=== PATIENT | female | born 1980 | race Two or more races ===

== ENCOUNTER 2024-09-09 12:21 | Outpatient (CLI) | payer BC, SELFPAY ==
[2024-09-09] VITALS (9 sets, daily range): BP systolic 133–145; BP diastolic 72–82; PULSE 109–117; RESP 18–97; TEMP 36.7; O2SAT 96–98; BMI 33.0
== END 2024-09-09 13:15 | disposition home or self-care (01) ==
LOC: S4S1 12:25 → S4SX 12:28
PROVIDERS: Referring Provider Student in an Organized Health Care Education/Training Program; Visit Provider Student in an Organized Health Care Education/Training Program
DX: O36.8130 Decreased fetal movements, third trimester, not applicable or unspecified (principal); Z3A.34 34 weeks gestation of pregnancy
CPT/HCPCS: 59025

== ENCOUNTER 2024-09-11 10:29 | Outpatient (CLI) | payer BC, SELFPAY ==
[2024-09-11] VITALS (10 sets, daily range): BP systolic 125; BP diastolic 78–79; PULSE 99–108; RESP 18–98; TEMP 36.5; O2SAT 97–98; BMI 33.6
--- NOTE | 2024-09-11 11:25 | PC.NURSE ---
[address] de dios pt presented to ob triage for nst for gdm, ama and hypothyroid, per pt waiting on insurance approval to schedule for biwkly nst. pt denies any lof, bleeding or uc, +fm. 34.3wk. orders to dc home return for nst/angela on 09/14/2024
== END 2024-09-11 11:20 | disposition home or self-care (01) ==
LOC: S4S1 10:30 → S4SX 10:30
PROVIDERS: Referring Provider Obstetrics & Gynecology; Visit Provider Obstetrics & Gynecology
DX: Z34.83 Encounter for supervision of other normal pregnancy, third trimester (principal); Z36.9 Encounter for antenatal screening, unspecified; Z3A.34 34 weeks gestation of pregnancy
CPT/HCPCS: 59025

== ENCOUNTER 2024-09-25 10:22 | Observation (INO) | payer BC, SELFPAY ==
[2024-09-25] VITALS (7 sets, daily range): BP systolic 129–144; BP diastolic 60–76; PULSE 92–100; RESP 18–99; TEMP 36.7; BMI 35.4
[2024-09-25 10:54] LABS: Collection Type, Urine Clean Catch
[2024-09-25 11:02] LABS: Basophils % (Auto) 0 % (0-2.5); Eosinophils # (Auto) 0.2 Thou/mm3 (0.0-0.5); Eosinophils % (Auto) 3 % (0-10); Hematocrit 32.7 % (36.0-46.0); Immature Granulocytes % (Auto) 0 % (0-0); Immature Granulocytes Auto 0.02 Thou/mm3 (0.00-0.00); Lymphocytes # (Auto) 1.1 Thou/mm3 (1.0-4.8); Lymphocytes % (Auto) 19 % (10-50); Mean Corpuscular HGB Conc 36.7 g/dl (31.0-37.0); Mean Corpuscular Hemoglobin 31.1 pg (25.0-35.0); Mean Corpuscular Volume 85 fL (80-100); Monocytes # (Auto) 0.7 Thou/mm3 (0.0-0.8); Monocytes % (Auto) 12 % (0-12); Neutrophils # (Auto) 3.9 Thou/mm3 (1.8-7.7); Neutrophils % (Auto) 66 % (37-80); Nucleated Red Blood Cell % 0 /100 WBC (0); Platelet Count 146 Thou/mm3 (140-440); RDW Standard Deviation 42.2 fL (36.4-46.3); Red Blood Count 3.86 Miln/mm3 (4.00-5.20); White Blood Count 5.9 Thou/mm3 (3.6-11.0)
[2024-09-25 11:08] LABS: Bacteria,Urine Rare; Bilirubin,Urine Negative (Negative); Blood,Urine Negative (Negative); Clarity,Urine Clear (Clear/Hazy); Color,Urine Lt-Yellow (Lt Yel-Yel); Glucose, Urine Negative (Negative); Ketones,Urine Negative (Negative); Leukocyte Esterase,Urine Positive (Negative); Nitrite,Urine Negative (Negative); PH,Urine 6.5 (5.0-7.0); Protein,Urine Negative (Neg - Trace); RBC,Urine 2 /hpf (0-3); Specific Gravity,Urine 1.019 (1.001-1.035); Squamous Epithelial Cell,Urine 9 /hpf (0-5); Urobilinogen,Urine Negative mg/dL (0.0-1.0); WBC,Urine 25 /hpf (0-5)
[2024-09-25 11:12] LABS: Creatinine,Random Urine 71 mg/dL (30-125); Protein Total, Random Urine 20 mg/dL (1-14)
[2024-09-25 11:14] LABS: Fibrinogen 432 mg/dL (175-375); Partial Thromboplastin Time 27.6 Seconds (22.0-36.0); Prothrombin Time 10.9 Seconds (9.0-12.2)
[2024-09-25 11:30] LABS: Alanine Aminotransferase 9 U/L (10-49); Albumin, Serum 3.2 gm/dL (3.5-5.0); Albumin/Globulin Ratio 1.4 (1.2-2.2); Alkaline Phosphatase 825 U/L (46-116); Anion Gap 7 (7-16); Aspartate Amino Transferase 17 U/L (0-34); BUN/Creatinine Ratio 16 Ratio (12-20); Bilirubin,Total 0.7 mg/dL (0.3-1.2); Blood Urea Nitrogen 8 mg/dL (9-23); Calcium 8.5 mg/dL (8.3-10.6); Calcium (Corrected) 9.1 mg/dL (8.5-10.1); Carbon Dioxide 20.8 mMol/L (20.0-31.0); Chloride 110 mMol/L (98-107); Creatinine (Component) 0.5 mg/dL (0.6-1.3); Estimated Creatinine Clearance 156.7 mL/min (>60); Globulin 2.3 gm/dL (2.3-3.5); Glucose 123 mg/dL (74-106); LDH (Lactate Dehydrogenase) 187 U/L (120-246); Osmolality,Calculated 274 (275-295); Potassium 4.1 mMol/L (3.4-5.1); Sodium 138 mMol/L (136-145); Total Protein 5.5 gm/dL (5.7-8.2); Uric Acid 3.3 mg/dL (3.1-7.8); eGFR > 60 See Note
== END 2024-09-25 12:15 | disposition home or self-care (01) ==
PROVIDERS: Admitting Provider Obstetrics & Gynecology; Visit Provider Student in an Organized Health Care Education/Training Program
DX: Z34.83 Encounter for supervision of other normal pregnancy, third trimester (principal); Z36.89 Encounter for other specified antenatal screening; Z3A.36 36 weeks gestation of pregnancy
CPT/HCPCS: 36415; 59025; 59899; 80053; 81001; 82570; 83615; 84156; 84550; 85025; 85384; 85610; 85730; G0378

== ENCOUNTER 2024-09-28 09:38 | Outpatient (RCR) | payer BC, SELFPAY ==
--- NOTE | 2024-09-14 09:52 | XR_ITS ---
Examination: Biophysical profile, ultrasound Date and time of exam: September 06, 2024 0954 hours INDICATIONS: Diagnosis type 2 diabetes Technique: Multiple transabdominal sonographic images of the pelvis abdomen obtained. Attention is directed to the breathing movement, gross body movement, amniotic fluid volume and tone. Findings: Amniotic fluid index 15.5 cm Total biophysical profile is 8 of 8. breathing movement is 2. Gross body movement is 2. tone is 2. Qualitative amniotic fluid volume is 2 Impression: Biophysical profile is 8 of 8.
[2024-09-14 10:05] VITALS: BP 130/58; PULSE 93; RESP 16; TEMP 36.7
--- NOTE | 2024-09-17 09:36 | XR_ITS ---
Examination: Biophysical profile, ultrasound Date and time of exam: September 17, 2024 0939 hours INDICATIONS: Diagnosis type 2 diabetes Technique: Multiple transabdominal sonographic images of the pelvis abdomen obtained. Attention is directed to the breathing movement, gross body movement, amniotic fluid volume and tone. Findings: Amniotic fluid volume 12.9 cm Total biophysical profile is 8 of 8. breathing movement is 2. Gross body movement is 2. tone is 2. Qualitative amniotic fluid volume is 2 Impression: Biophysical profile is 8 of 8.
[2024-09-17 10:12] VITALS: BP 134/69; PULSE 72; RESP 16; TEMP 36.8
--- NOTE | 2024-09-21 09:37 | XR_ITS ---
Examination: Biophysical profile, ultrasound Date and time of exam: September 21, 2024 0944 hours INDICATIONS: Diagnosis type 2 diabetes Technique: Multiple transabdominal sonographic images of the pelvis abdomen obtained. Attention is directed to the breathing movement, gross body movement, amniotic fluid volume and tone. Findings: Amniotic fluid index 13.7 cm Total biophysical profile is 8 of 8. breathing movement is 2. Gross body movement is 2. tone is 2. Qualitative amniotic fluid volume is 2 Impression: Biophysical profile is 8 of 8.
[2024-09-21 10:09] VITALS: BP 123/58; PULSE 98; RESP 16; TEMP 36.7
--- NOTE | 2024-09-24 09:42 | XR_ITS ---
Examination: Biophysical profile, ultrasound Date and time of exam: September 24, 2024 0954 hours INDICATIONS: Diagnosis type 2 diabetes Technique: Multiple transabdominal sonographic images of the pelvis abdomen obtained. Attention is directed to the breathing movement, gross body movement, amniotic fluid volume and tone. Findings: Amniotic fluid index 10 cm Total biophysical profile is 8 of 8. breathing movement is 2. Gross body movement is 2. tone is 2. Qualitative amniotic fluid volume is 2 Impression: Biophysical profile is 8 of 8.
[2024-09-24 10:15] VITALS: BP 127/80; PULSE 100; RESP 16; TEMP 36.7
--- NOTE | 2024-09-28 09:47 | XR_ITS ---
Examination: Biophysical profile, ultrasound Date and time of exam: September 28, 2024 0951 hours INDICATIONS: Diagnosis type 2 diabetes Technique: Multiple transabdominal sonographic images of the pelvis abdomen obtained. Attention is directed to the breathing movement, gross body movement, amniotic fluid volume and tone. Findings: Amniotic fluid index 9.6 cm Total biophysical profile is 8 of 8. breathing movement is 2. Gross body movement is 2. tone is 2. Qualitative amniotic fluid volume is 2 Impression: Biophysical profile is 8 of 8.
[2024-09-28 10:13] VITALS: BP 130/72; PULSE 97; RESP 16
== END 2024-09-28 23:59 | disposition home or self-care (01) ==
LOC: S4S1 09:38
PROVIDERS: Referring Provider Student in an Organized Health Care Education/Training Program; Visit Provider Student in an Organized Health Care Education/Training Program
DX: O24.113 Pre-existing type 2 diabetes mellitus, in pregnancy, third trimester (principal); E11.9 Type 2 diabetes mellitus without complications; Z3A.36 36 weeks gestation of pregnancy
CPT/HCPCS: 59025; 76819

== ENCOUNTER 2024-09-29 19:43 | Inpatient (IN) | payer BC, SELFPAY ==
[2024-09-29] VITALS (34 sets, daily range): BP systolic 118–175; BP diastolic 61–97; PULSE 84–120; TEMP 36.6; O2SAT 96–100; BMI 37.0
[2024-09-29 20:12] LABS: Collection Type, Urine Clean Catch
[2024-09-29 20:21] LABS: Basophils % (Auto) 0 % (0-2.5); Eosinophils # (Auto) 0.1 Thou/mm3 (0.0-0.5); Eosinophils % (Auto) 1 % (0-10); Hematocrit 33.1 % (36.0-46.0); Immature Granulocytes % (Auto) 0 % (0-0); Immature Granulocytes Auto 0.02 Thou/mm3 (0.00-0.00); Lymphocytes # (Auto) 1.3 Thou/mm3 (1.0-4.8); Lymphocytes % (Auto) 19 % (10-50); Mean Corpuscular HGB Conc 36.3 g/dl (31.0-37.0); Mean Corpuscular Hemoglobin 31.2 pg (25.0-35.0); Mean Corpuscular Volume 86 fL (80-100); Monocytes # (Auto) 0.7 Thou/mm3 (0.0-0.8); Monocytes % (Auto) 10 % (0-12); Neutrophils # (Auto) 4.8 Thou/mm3 (1.8-7.7); Neutrophils % (Auto) 68 % (37-80); Nucleated Red Blood Cell % 0 /100 WBC (0); Platelet Count 148 Thou/mm3 (140-440); Red Blood Count 3.85 Miln/mm3 (4.00-5.20)
[2024-09-29 20:30] LABS: Fibrinogen 432 mg/dL (175-375); Partial Thromboplastin Time 26.5 Seconds (22.0-36.0); Prothrombin Time 10.6 Seconds (9.0-12.2)
[2024-09-29 20:33] LABS: Alanine Aminotransferase 12 U/L (10-49); Albumin, Serum 3.3 gm/dL (3.5-5.0); Albumin/Globulin Ratio 1.4 (1.2-2.2); Alkaline Phosphatase 944 U/L (46-116); Anion Gap 11 (7-16); Aspartate Amino Transferase 22 U/L (0-34); BUN/Creatinine Ratio 14 Ratio (12-20); Bilirubin,Total 0.8 mg/dL (0.3-1.2); Blood Urea Nitrogen 7 mg/dL (9-23); Calcium 8.4 mg/dL (8.3-10.6); Carbon Dioxide 20.7 mMol/L (20.0-31.0); Chloride 110 mMol/L (98-107); Creatinine (Component) 0.5 mg/dL (0.6-1.3); Estimated Creatinine Clearance 154.7 mL/min (>60); Globulin 2.4 gm/dL (2.3-3.5); Glucose 144 mg/dL (74-106); Osmolality,Calculated 284 (275-295); Sodium 142 mMol/L (136-145); Total Protein 5.7 gm/dL (5.7-8.2); Uric Acid 3.4 mg/dL (3.1-7.8); eGFR > 60 See Note
--- NOTE | 2024-09-29 20:36 | XR_ITS ---
Examination: Complete OB ultrasound greater than 14 weeks Date and time of exam: September 30, 1999 2510 0 5:00 PM INDICATIONS: -induced hypertension, unknown presentation today Findings: Viable intrauterine single fetus with single amniotic sac presentation cephalic Cardiac motion 148 BPM Placenta maternal left grade 2 A vocal CORD insertion 3 vessel seen Amniotic fluid index 6.6 cm spine variable Cervix 3.2 cm Ovaries obscured by bowel gas. Composite estimated gestational age based on BPD, head circumference, abdominal circumference, femur length is 34 weeks 4 days Estimated weight 2415 g. Survey of intracranial anatomy, spinal anatomy, abdominal anatomy, four-chamber heart performed with no abnormalities identified. Impression: Viable intrauterine gestation cephalic presentation.
[2024-09-29 20:51] LABS: Syphilis Nonreactive (Nonreactive)
[2024-09-29] MEDS: LABETALOL 100 MG TABLET 400 MG PO (21:03)
[2024-09-29 21:25] LABS: Bilirubin,Urine Negative (Negative); Blood,Urine Negative (Negative); Clarity,Urine Turbid (Clear/Hazy); Color,Urine Yellow (Lt Yel-Yel); Glucose, Urine Negative (Negative); Ketones,Urine Negative (Negative); Leukocyte Esterase,Urine Positive (Negative); Nitrite,Urine Negative (Negative); Protein,Urine 1+ (Neg - Trace); RBC,Urine 2 /hpf (0-3); Squamous Epithelial Cell,Urine 15 /hpf (0-5); WBC,Urine 15 /hpf (0-5)
--- NOTE | 2024-09-29 21:44 | PD.LDHP ---
Documentation for date of: 09/29/24 OB Labor/Induct. HPI History of Present Illness : 3 Term pregnancies: 1 pregnancies: 0 Living children: 1 History of Abortions: Spontaneous and Elective: 0 History of sections: No History of : No Date of last menstrual period: 01/04/24 ROSS: 10/20/24 Gestational age based on last menstrual period: 40 History of present illness: 44-year-old 3 para 1-0-1-1 at 37 weeks (per 13 weeks ultrasound), was sent earlier today from her perinatologist appointment for induction of labor. has been complicated by type 2 diabetes and uncontrolled hypothyroidism. Patient was a transfer of care from [facility] and when I assumed her care during her . She was not on any medications for diabetes. Thereafter the patient was started on insulin as self monitored blood glucose were not under control. After multiple adjustments of insulin for the last 2 visits patient was reporting her blood sugars to be within expected limits. However during her last visit patient had elevated blood pressures and was sent to the triage for preeclampsia evaluation. Patient did have persistent elevations in blood pressure for which her induction was scheduled for 09/30. However given the fact that she had elevated blood pressure at perinatologist appointment she was sent for an induction by M recommendation. Patient is also hypothyroid and have multiple adjustments of her levothyroxine during her . History of Present Adequate Care: Yes Abnormal ultrasound findings: Based on 13-week ultrasound Labs Labs: Positive: Rubella Titre and Negative: RPR, Hepatitis B, HIV, Chlamydia and Gonorrhea Past Medical History Surgical History SURGICAL: Negative Section Meds Home Medications and Allergies Home Medications ?Medication ?Instructions ?Recorded ?Confirmed ?Type No home meds. ##0 07/13/07 History levothyroxine 50 mcg tablet 50 mcg PO DAILY 09/09/24 09/29/24 History levothyroxine 75 mcg tablet mcg 09/09/24 History vit no.95-ferrous 1 tab PO DAILY 09/09/24 09/29/24 History fumarate 28 mg-folic acid 800 mcg tablet () insulin glargine 100 unit/mL (3 6 unit subcut QPM 09/11/24 09/29/24 History mL) subcutaneous pen Allergies Allergy/AdvReac Type Severity Reaction Status Date / Time No Known Allergies Allergy Unverified 09/30/24 08:16 OB Exam Physical Exam Vital signs: Temp Pulse BP Pulse Ox 97.8 F 95 143/79 H 97 09/29/24 20:00 09/29/24 21:03 09/29/24 21:03 09/29/24 21:43 Constitutional Constitutional: no acute distress Routine HEENT Exam Head: Present normocephalic and atraumatic Eye: Present EOMI and PERRL ENT: Present mucous membranes moist Routine Neck Exam Neck: Present supple and trachea midline Routine Cardiovascular Exam Cardiovascular: Present RRR Routine Abdominal Exam Abdominal: Present soft and normoactive bowel sounds Detailed Labor and Delivery Exam Dilation (cm): 3 Effacement (%): 50 Consistency: medium monitor accelerations: 15x15 monitor decelerations: None Routine Extremities Exam Extremities: Present full ROM Routine Skin Exam Skin: Present intact, dry and warm Routine Neurological Exam Neurological: Present alert, oriented X3 and CN II-XII intact Routine Psychiatric Exam Psychiatric: Present normal affect and normal thought process OB Results Labs 09/30/24 07:35 09/29/24 20:04 Labs: Short CBC 09/29/24 Range/Units 20:04 WBC 7.0 (3.6-11.0) Thou/mm3 Hgb 12.0 (12.0-16.0) g/dL Hct 33.1 L (36.0-46.0) % Plt Count 148 (140-440) Thou/mm3 BMP 09/29/24 20:04 Sodium 142 Potassium 4.0 Chloride 110 H Carbon Dioxide 20.7 BUN 7 L Creatinine 0.5 L Glucose 144 H Calcium 8.4 Liver Function 09/29/24 Range/Units 20:04 Total Bilirubin 0.8 (0.3-1.2) mg/dL AST 22 (0-34) U/L ALT 12 (10-49) U/L Alkaline Phosphatase 944 H (46-116) U/L Albumin 3.3 L (3.5-5.0) gm/dL Urine 09/29/24 Range/Units 20:04 Urine Color Yellow (Lt Yel-Yel) Urine Clarity Turbid A (Clear/Hazy) Urine pH 6.0 (5.0-7.0) Ur Specific [place] 1.030 (1.001-1.035) Urine Protein 1+ A (Neg - Trace) Urine Glucose (UA) Negative (Negative) Impressions Impression: 44-year-old 3 para 1-0-1-1 at 37 weeks admitted for induction of labor for gestational hypertension, type 2 diabetes on insulin, hypothyroidism uncontrolled Cephalic on presentation Preeclampsia labs within normal limits OB Assessment & Plan Additional Plan Additional Plan Comment: Cytotec per protocol
[2024-09-29] MEDS: INSULIN GLARGINE (Lantus) 5 UNIT/0.05 ML (PER 5 UNITS) 6 UNIT SC (22:15)
[2024-09-29] MEDS: MISOPROSTOL 50 mCg TABLET PO (23:04)
[2024-09-29] MEDS: FAMOTIDINE INJ 10 MG/ML VIAL 2 ML 20 MG IV (23:46)
[2024-09-29] MEDS: METOCLOPRAMIDE INJ 5 MG/ML VIAL 2 ML 10 MG IVP (23:46)
[2024-09-29] MEDS: ceFAZolin/D5W 2 GM IV 2 GM/100 ML BAG IV (23:47)
[2024-09-30] VITALS (17 sets, daily range): BP systolic 99–140; BP diastolic 50–83; PULSE 74–116; RESP 15–20; TEMP 36–37; O2SAT 2–99
--- NOTE | 2024-09-30 00:03 | ESPR_ITS ---
Documentation for date of: 09/30/24 OB Labor Progress Note Pelvic Exam Dilation (cm): 2.5 Effacement (%): 50 station: -3 Amniotic membrane status: Intact Contractions Monitor mode: External Contraction frequency: irreg Contraction intensity: Mild Status status: Category ll Assessment and Plan Comments: Patient after receiving the Cytotec had 3 prolonged deceleration where baby was down to 90. I was called by the charge nurse at 11:50 PM. Patient was evaluated at the bedside baby has returned back to the baseline however variability continues to be minimal. Blood pressure at the bedside was noted to be 175 systolic however the repeat was in 140. Anticipating drop in blood pressure during epidural patient was not given any antihypertensive medications. I did have an extensive discussion with the patient patient and her at the bedside. I made them aware that she is still in latent phase of labor and baby is having prolonged decelerations. At this point primary low-transverse C- section was offered as a mode of delivery for category 2 heart tone and intolerance to uterine contractions. Patient was also given the choice of expectant management and continuing with the induction as the baby has recovered now. However patient and her wants to pursue as mode of delivery. Risk of including bleeding, infection, injury to neighboring organs was discussed
[2024-09-30] MEDS: OXYTOCIN in NS 20 units 20 UNIT/1,000 ML BAG 125 UNIT IV (02:49)
[2024-09-30] MEDS: LEVOTHYROXINE SODIUM 25 MCG TABLET 50 MCG PO (05:59)
[2024-09-30 08:28] LABS: Basophils % (Auto) 1 % (0-2.5); Eosinophils # (Auto) 0.1 Thou/mm3 (0.0-0.5); Eosinophils % (Auto) 1 % (0-10); Hematocrit 30.5 % (36.0-46.0); Hemoglobin 10.7 g/dL (12.0-16.0); Immature Granulocytes % (Auto) 0 % (0-0); Immature Granulocytes Auto 0.02 Thou/mm3 (0.00-0.00); Lymphocytes # (Auto) 1.2 Thou/mm3 (1.0-4.8); Lymphocytes % (Auto) 15 % (10-50); Mean Corpuscular HGB Conc 35.1 g/dl (31.0-37.0); Mean Corpuscular Volume 88 fL (80-100); Monocytes # (Auto) 0.8 Thou/mm3 (0.0-0.8); Monocytes % (Auto) 10 % (0-12); Neutrophils # (Auto) 6.1 Thou/mm3 (1.8-7.7); Neutrophils % (Auto) 74 % (37-80); Nucleated Red Blood Cell % 0 /100 WBC (0); Platelet Count 131 Thou/mm3 (140-440); RDW Standard Deviation 44.4 fL (36.4-46.3); Red Blood Count 3.45 Miln/mm3 (4.00-5.20); White Blood Count 8.2 Thou/mm3 (3.6-11.0)
[2024-09-30] MEDS: INSULIN GLARGINE (Lantus) 5 UNIT/0.05 ML (PER 5 UNITS) 6 UNIT SC (09:05)
--- NOTE | 2024-09-30 11:31 | PD.GYNPROC ---
Operative Note - [facility] Procedure Date of procedure: 09/30/24 Procedure Performed: Primary low-transverse Indication: Category 2 heart tone in latent phase of labor Type 2 diabetes on insulin, poorly controlled Gestational hypertension Uncontrolled hypothyroidism Pre-Op diagnosis: Same Post-Op diagnosis: Same Anesthesia type: Spinal Procedure description: Informed consent was obtained and the patient was taken to the operating room.? Identity was confirmed by double identifiers and she was placed on the operating table.The abdomen and perineum were prepped in the usual sterile fashion and a Wing catheter was placed to continuous drainage.? Sterile drapes were applied.??A Pfannenstiel skin incision was made with a scalpel and carried to the subcutaneous fat up to the rectus fascia.? The rectus fascia was incised on either side of the midline and the incisions were extended bilaterally.? The fascia was gently dissected off the ventral surface of the rectus muscle both superiorly and inferiorly. Carefully a peritioneal window created after making sure there are no adhesions, hysterotomy incision made and extended bluntly with finger. Rupture of membranes revealed clear fluid. The baby was found in cephalic presentation and was delivered via vertex. seen the umbilical cord , was doubly clamped, divided and the was handed over to the waiting team. The placenta delivered by controlled cord traction . The interior of the uterus was now thorougly cleaned of all blood and debris and membranes.?The? hysterotomy was closed using 0 vicryl suture in double layers. Once the repair was completed the hysterotomy was inspected, was noted to be adequately hemostatic. Then the rectus fascia was repaired using Vicryl 0 in a running fashion.? The subcutaneous layer was now, approximated with 3-0 vicryl in double layers.? All bleeding points were cauterized using the Bovie.?The skin was closed using 4-0 Monocryl in a subcuticular fashion.? The skin was cleaned and a sterile dressing was applied. The patient was now undraped, the abdomen and back were thoroughly cleaned and she was now transferred to the recovery room in a stable Estimated blood loss (ml): 400 Surgical staff Operation Date: 09/30/24 00:19 Case Staff END MATCHER: Sven Spain RN First Assistant: Vicente Mendez Diagnosis Problem List Completed Was Problem List Reviewed/Reconciled?: Yes
--- NOTE | 2024-09-30 11:36 | PD.LDPPPRG ---
Subjective Subjective Interval history: 44-year-old s/p primary low-transverse earlier today was seen at the bedside. Patient is doing well denies any nausea vomiting has not started her diet yet and is ordered on gestational diabetic diet. Patient denies any fever or vaginal bleeding. Patient has not started ambulating yet Exam Vital Signs Temp Pulse Resp BP Pulse Ox O2 Del Method O2 Flow Rate 98.6 F 93 15 127/80 95 Room Air 2 09/30/24 09:05 09/30/24 09:05 09/30/24 09:05 09/30/24 09:05 09/30/24 09:05 09/30/24 09:05 09/30/24 02:35 Constitutional Constitutional: no acute distress Routine HEENT Exam Head: Present normocephalic and atraumatic Eye: Present EOMI and PERRL ENT: Present mucous membranes moist Routine Neck Exam Neck: Present supple and trachea midline Routine Respiratory Exam Respiratory: Present chest non-tender, lungs clear, normal breath sounds and no resp distress Routine Cardiovascular Exam Cardiovascular: Present RRR Routine Abdominal Exam Abdominal: Present soft and normoactive bowel sounds Routine Extremities Exam Extremities: Present full ROM Routine Skin Exam Skin: Present intact, dry and warm Routine Neurological Exam Neurological: Present alert, oriented X3 and CN II-XII intact Routine Psychiatric Exam Psychiatric: Present normal affect and normal thought process Objective Labs 09/30/24 07:35 09/29/24 20:04 Labs: Laboratory Results - last 24 hr 09/29/24 09/30/24 20:04 07:35 WBC 7.0 8.2 RBC 3.85 L 3.45 L Hgb 12.0 10.7 L Hct 33.1 L 30.5 L MCV 86 88 MCH 31.2 31.0 MCHC 36.3 35.1 RDW Std Deviation 43.0 44.4 Plt Count 148 131 L Neut % (Auto) 68 74 Lymph % (Auto) 19 15 [place] % (Auto) 10 10 Eos % (Auto) 1 1 Baso % (Auto) 0 1 Neut # (Auto) 4.8 6.1 Lymph # (Auto) 1.3 1.2 [place] # (Auto) 0.7 0.8 Eos # (Auto) 0.1 0.1 Baso # (Auto) 0.0 0.0 Immature Gran # (Auto) 0.02 H 0.02 H Absolute Nucleated RBC 0.00 0.00 Immature Gran % 0 0 Nucleated RBC % 0 0 PT 10.6 INR 1.0 APTT 26.5 Fibrinogen 432 H Sodium 142 Potassium 4.0 Chloride 110 H Carbon Dioxide 20.7 Anion Gap 11 BUN 7 L Creatinine 0.5 L Estim Creat Clear Calc 154.7 eGFR > 60 BUN/Creatinine Ratio 14 Glucose 144 H Calculated Osmolality 284 Uric Acid 3.4 Calcium 8.4 Corrected Calcium 9.0 Total Bilirubin 0.8 AST 22 ALT 12 Alkaline Phosphatase 944 H Total Protein 5.7 Albumin 3.3 L Globulin 2.4 Albumin/Globulin Ratio 1.4 Ur Collection Type Clean Catch Urine Color Yellow Urine Clarity Turbid A Urine pH 6.0 Ur Specific [place] 1.030 Urine Protein 1+ A Urine Glucose (UA) Negative Urine Ketones Negative Urine Blood Negative Urine Nitrite Negative Urine Bilirubin Negative Urine Urobilinogen (Auto) 3.0 Ur Leukocyte Esterase Positive Urine RBC 2 Urine WBC 15 H Ur Squamous Epith Cells 15 H Urine Bacteria None Syphilis Serology Nonreactive Blood Type A Positive Antibody Screen NEGATIVE Blood Bank Wristband ID Yes Assessment & Plan Assessment Comment Assessment comment: 44-year-old para 2 status post primary low-transverse for category 2 heart tone, postop day 0 Vital signs stable Meeting all postop milestones Type 2 diabetes insulin [place] Hypothyroidism to continue her levothyroxine Gestational hypertension blood pressures has been controlled well without any addition of antihypertensives Plan Comment Plan Comment: Continue postop care Anticipate discharge tomorrow Time Spent With Patient Time: Total time spent is greater than 50% in coordination of care (as documented) at patient's floor/unit and/or counseling patient:
[2024-09-30] MEDS: HYDROcodone/APAP 5/325 TABLET 2 TAB PO (12:20)
[2024-09-30] MEDS: DOCUSATE SOD 100 MG CAPSULE PO (17:50)
[2024-09-30] MEDS: IBUPROFEN TAB 400 MG TABLET 800 MG PO (17:50)
[2024-09-30] MEDS: SIMETHICONE 80 MG CHEW PO (17:50)
[2024-09-30] MEDS: INSULIN GLARGINE (Lantus) 5 UNIT/0.05 ML (PER 5 UNITS) 3 UNIT SC (20:57)
[2024-10-01 01:07] VITALS: BP 127/80; PULSE 90; RESP 18; TEMP 36.7; O2SAT 97
[2024-10-01 03:45] VITALS: BP 138/85; PULSE 89; RESP 16; TEMP 36.7; O2SAT 98
[2024-10-01] MEDS: HYDROcodone/APAP 5/325 TABLET 1 TAB PO (03:45)
[2024-10-01] MEDS: LEVOTHYROXINE SODIUM 25 MCG TABLET 50 MCG PO (05:56)
--- NOTE | 2024-10-01 08:25 | PC.LAC ---
Mom states that she has not gotten a chance to pump again since she has had so much company. Explained that she needs to stay on a schedule in order to assure a good milk supply. Explained that she can have her company come back or even wait a few minutes so she can get a pumping session in. As she is also not putting baby to breast, supplementing with formula, stressed importance of stimulation. Parents understood. stressed the importance of skin to skin and hand massage to encourage more stimulation as well.
[2024-10-01 08:30] VITALS: BP 125/83; PULSE 105
[2024-10-01] MEDS: IBUPROFEN TAB 400 MG TABLET 800 MG PO (08:44)
--- NOTE | 2024-10-01 08:52 | ESPR_ITS ---
Subjective Subjective Interval history: Denies any problem or complaint Exam Vital Signs Temp Pulse Resp BP Pulse Ox O2 Del Method O2 Flow Rate 98.1 F 89 16 138/85 H 98 Room Air 2 10/01/24 03:45 10/01/24 03:45 10/01/24 03:45 10/01/24 03:45 10/01/24 03:45 10/01/24 03:45 09/30/24 02:35 Routine Abdominal Exam Comments: Incision clear and intact Routine Extremities Exam Comments: Nontender Objective Labs 09/30/24 07:35 09/29/24 20:04 Labs: Laboratory Results - last 24 hr 09/30/24 07:35 WBC 8.2 RBC 3.45 L Hgb 10.7 L Hct 30.5 L MCV 88 MCH 31.0 MCHC 35.1 RDW Std Deviation 44.4 Plt Count 131 L Neut % (Auto) 74 Lymph % (Auto) 15 [place] % (Auto) 10 Eos % (Auto) 1 Baso % (Auto) 1 Neut # (Auto) 6.1 Lymph # (Auto) 1.2 [place] # (Auto) 0.8 Eos # (Auto) 0.1 Baso # (Auto) 0.0 Immature Gran # (Auto) 0.02 H Absolute Nucleated RBC 0.00 Immature Gran % 0 Nucleated RBC % 0 Assessment & Plan Assessment Comment Assessment comment: Postop day #2 status post delivery Discharge home Discharge instructions given Follow-up in the office in 1 week Time Spent With Patient Time: Total time spent is greater than 50% in coordination of care (as documented) at patient's floor/unit and/or counseling patient:
[2024-10-01 09:00] VITALS: BP 125/83; PULSE 105; RESP 16; TEMP 36.7
--- NOTE | 2024-10-01 09:05 | PD.LDDS ---
DS: Providers Provider Date of admission: 09/29/24 19:43 Primary care physician: Physician No Primary/Family Admitting Provider: Cedrick Wills MD Attending Provider on Admission: Bartolo Rodriguez MD Consults: 09/30/24 01:02 Referral Routine Comment: Attending Provider on DC: Bartolo Rodrigeuz MD Discharging Provider: Bartolo Rodriguez MD DS: Diagnosis Problem List Completed Was Problem List Reviewed/Reconciled?: Yes Summary/Hosp Course Brief History: 44-year-old 3 para 1-0-1-1 at 37 weeks (per 13 weeks ultrasound), was sent earlier today from her perinatologist appointment for induction of labor. has been complicated by type 2 diabetes and uncontrolled hypothyroidism. Patient was a transfer of care from [facility] and when I assumed her care during her . She was not on any medications for diabetes. Thereafter the patient was started on insulin as self monitored blood glucose were not under control. After multiple adjustments of insulin for the last 2 visits patient was reporting her blood sugars to be within expected limits. However during her last visit patient had elevated blood pressures and was sent to the triage for preeclampsia evaluation. Patient did have persistent elevations in blood pressure for which her induction was scheduled for 09/30. However given the fact that she had elevated blood pressure at perinatologist appointment she was sent for an induction by M recommendation. Patient is also hypothyroid and have multiple adjustments of her levothyroxine during her . Peripartum Data Delivery Method: Low Transverse Episiotomy Description: None Procedures: Procedures Operation Date: 09/30/24 00:19 Actual Procedure Side Surgeon p in OB Not Applicable Cedrick Wills MD Time Spent with Patient Time attestation: Total time spent providing and/or coordinating discharge services: Exam Vital Signs Temp Pulse Resp BP Pulse Ox O2 Del Method O2 Flow Rate 98.1 F 105 H 16 125/83 98 Room Air 2 10/01/24 03:45 10/01/24 08:30 10/01/24 03:45 10/01/24 08:30 10/01/24 03:45 10/01/24 03:45 09/30/24 02:35 Discharge Plan Plan Patient Disposition: HOME (Self Care) Patient condition on transfer: Stable Prescriptions/Referrals Prescriptions/Med Rec: New hydrocodone-acetaminophen 5-325 mg tablet 1 tab PO Q6H MDD 4 PRN (Reason: pain) Qty: 20 0RF Continued No home meds. Qty: 0 insulin glargine 100 unit/mL (3 mL) insulin pen 6 unit subcut QPM levothyroxine 75 mcg tablet PNV cmb#95-ferrous fumarate-FA [] 28 mg iron- 800 mcg tablet 1 tab PO DAILY Patient Comments: TAKE 1 TABLET BY MOUTH EVERY DAY Discontinued levothyroxine 50 mcg tablet 50 mcg PO DAILY Patient Comments: TAKE 1 TABLET BY MOUTH 30 MINUTES BEFORE BREAKFAST Referrals: No Primary/Family,Physician [Primary Care Provider] - Patient/Caregiver Discharge Instructions Education Materials: C Section Dc Print Language: Gambian Stand Alone Forms: Leigha Award Info., Patient Portal Info Letter Discharge Order Discharge Orders: Discharge (Routine); Ordered 10/01/24 Ordered By: Bartolo Rodriguez Planned Discharge Date 10/01/24
--- NOTE | 2024-10-01 09:30 | PC.NURSE ---
Patient cleared by clinical social worker
[2024-10-01 11:40] VITALS: BP 128/73; PULSE 86; RESP 16; TEMP 37; O2SAT 97
--- NOTE | 2024-10-01 11:49 | PC.SS ---
SS conducted bedside contact with the patient to address nursing referral indicating patient scored high on the depression scale.? SS introduced self and role.? SS discussed with patient basis of referral.? SS asked for permission to speak in front of .? Patient denied having any feelings of depression. Patient states when she completed the screening she had multiple family members in room and was a little distracted.? Patient, currently, has no impairments. Patient has no current thoughts of harming herself or others.? No other history of documented mental health. FOBTyler, resides in the home. This is patient?s 2nd child. [place], baby girl, Kim, was born this on 09[birth year]30-24 via csection. Patient?s other child is 23 years old. care was completed with Dr. Wills.? Patient was consistent with . Patient plans on breast/bottle feeding. Patient is not aligned with [place] assistance WIC or Food stamps. Patient denies history of drug/alcohol abuse, domestic violence. Patient describes possessing positive support from her family. Patient has all resources to include: car seat, infant clothing and infant supplies.? child protective services social worker provided resources to include:? Parenting Network, Warm Line and community numbers. SS discussed in further detail emotional support and answered all questions appropriately. No further intervention required at this time, transition social worker will be available to address any further concerns. SS updated bedside nurse. Patient to discharge home this morning.
--- NOTE | 2024-10-03 12:43 | OBDSUM_ITS ---
Data (Rose) Data Hx Section: No : 3 Term: 1 : 0 Livin Abortions: Spontaneous & Theraputic: 0 Delivery Data (Rose) Labor Data Initiation of labor: Induction Induction/Augmentation Agent: Cytotec-PO ROM date: 09/30/24 ROM time: 00:23 Amniotic membrane rupture type: Artificial Amniotic fluid description: Clear Delivery Data delivery date: 09/30/24 delivery time: 00:24 Gestational age (weeks): 37 Gestational age (days): 0 Placenta delivery date: 09/30/24 Placenta delivery time: 00:25 Delivered by: Cedrick Wills Delivery nurse: rad Mckeon nurse: thang Supervisor [employer] at delivery: Yes Support person(s) at delivery: FOB in room Delivery Method Delivery method: Low Transverse Presentation: Vertex Anesthesia Type Anesthesia Type: Spinal Anesthesia type: Spinal Placenta Placenta delivery description: Manual Removal Cord blood sent to lab: Yes cord blood collection: Cord Blood Type Episiotomy Episiotomy description: None EBL Estimated blood loss (ml): 400 Umbilical Cord cord description: 3 Vessels and Nuchal Cord [place] Data (Rose) Data order: 1 [place]'s gender: Female Identification band number: [id number] weight (gms): 2810 g Weight (pounds): 6 lbs and 3.1 ozs [place] length: 46.99 cm 1 minute: 8 5 minutes: 9
== END 2024-10-01 14:05 | disposition home or self-care (01) | DRG 788 ==
LOC: S4SX 19:54 → S4NX 09-30 00:27
PROVIDERS: Admitting Provider Student in an Organized Health Care Education/Training Program; Visit Provider Specialist
PROC: 10D00Z1 Extraction of Products of Conception, Low, Open Approach (ICD-10-PCS; CPT 59514; principal; 2024-09-30)
DX: O13.4 Gestational [pregnancy-induced] hypertension without significant proteinuria, complicating childbirth (principal); O24.12 Pre-existing type 2 diabetes mellitus, in childbirth; E03.9 Hypothyroidism, unspecified; O99.284 Endocrine, nutritional and metabolic diseases complicating childbirth; Z37.0 Single live birth; Z3A.37 37 weeks gestation of pregnancy; O69.81X0 Labor and delivery complicated by cord around neck, without compression, not applicable or unspecified; O76 Abnormality in fetal heart rate and rhythm complicating labor and delivery; Z79.890 Hormone replacement therapy; Z79.4 Long term (current) use of insulin
CPT/HCPCS: 36415; 59409; 76805; 80053; 81001; 84550; 85025; 85384; 85610; 85730; 86780; 86850; 86900; 86901; 94762; J0689; J1815; J2250; J2274; J2590; J2765; J3010; J3490; A9270; J2270

== ENCOUNTER → 2025-02-05 | Outpatient (CLI) | payer BC, SELFPAY ==
--- NOTE | 2025-02-05 07:15 | XR_ITS ---
Examination: Abdomen sonogram, complete Date and time of exam: February 05, 2025, 0713 hrs. Indications: Elevated liver tests on laboratory examination this week. Technique: Multiple real-time grayscale transabdominal sonographic images of the abdomen have been obtained. Findings: Normal gallbladder. Normal common bile duct 0.4 cm. Pancreatic head 1.8 cm Aorta not enlarged. Liver 13.8 cm no liver lesions Normal hepatopedal portal venous flow Patent IVC Right kidney 10.4 cm cortex 2.2 cm Left kidney 11.0 cm cortex 2.1 cm No hydronephrosis or renal calculi Spleen 9.1 cm Impression: Normal gallbladder Liver normal size no focal liver lesions No hydronephrosis or renal calculi
== END | disposition home or self-care (01) ==
LOC: CDIM 07:02
PROVIDERS: PCP Registered Nurse Community Health; Referring Provider Registered Nurse Community Health; Visit Provider Registered Nurse Community Health
DX: R74.01 Elevation of levels of liver transaminase levels (principal)
CPT/HCPCS: 76700